=== PATIENT | female | born 1985 | race Caucasian/White ===

== ENCOUNTER 2018-03-04 10:09 | Emergency (ER) | payer MEDICAID, OTHER ==
[2018-03-04 10:34] VITALS: BP 120/68; PULSE 80; RESP 16; TEMP 98.9
[2018-03-04 10:44] VITALS: O2SAT 98
--- NOTE | 2018-03-04 11:43 | ED PDOC ---
HPI: Skin/Bite Injury Time Seen by Provider: 03/04/18 10:42 Chief Complaint (Nursing): Abnormal Skin Integrity Chief Complaint (Provider): Abnormal Skin Integrity History Per: Patient History/Exam Limitations: no limitations Onset/Duration Of Symptoms: Intermittent Episodes (6 months) Current Symptoms Are (Timing): Better Location Of Injury: Right: Arm (Bilateral Axilla), Left: Arm Additional Complaint(s): Patient is a 32 year old female with history of HTN presenting to the ED with complaints of bilateral axilla swelling and pain. She states that she is able to express pus from the region. Patient states that symptoms have been intermittent for the past 6 months and today was the only time she was able see a doctor. However, patient currently does not report any symptoms. She denies any fever, trauma, or a history of diabetes. PMD: None provided Past Medical History Reviewed: Historical Data, Nursing Documentation, Vital Signs Vital Signs: Last Vital Signs Temp 98.9 F 03/04/18 10:34 Pulse 80 03/04/18 10:34 Resp 16 03/04/18 10:34 BP 120/68 03/04/18 10:34 Pulse Ox 98 03/04/18 12:18 - Medical History PMH: HTN (during ) - Surgical History Surgical History: No Surg Hx - Family History Family History: States: Unknown Family Hx - Social History Current smoker - smoking cessation education provided: No Ex-Smoker (has not smoked in the last 12 months): Yes Alcohol: Social Drugs: Denies - Home Medications Home Medications: Ambulatory Orders Medication Instructions Recorded DiphenhydrAMINE [Benadryl] 1 - 2 tab PO Q6H #30 cap 02/09/15 Famotidine [Pepcid] 20 mg PO BID #14 tab 02/09/15 Prednisone 40 mg PO DAILY #10 tab 02/09/15 Sulfamethoxazole/Trimethoprim 2 tab PO BID #28 tab 03/04/18 [Bactrim DS 800 mg-160 mg] - Allergies Allergies/Adverse Reactions: Allergies Allergy/AdvReac Type Severity Reaction Status Date / Time No Known Allergies Allergy Verified 03/04/18 10:42 Review of Systems ROS Statement: Except As Marked, All Systems Reviewed And Found Negative Constitutional: Negative for: Fever Musculoskeletal: Positive for: Arm Pain (bilateral axilla swelling with pus). Negative for: Other (axilla trauma) Physical Exam - Reviewed Nursing Documentation Reviewed: Yes Vital Signs Reviewed: Yes - Physical Exam Appears: Positive for: No Acute Distress Head Exam: Positive for: ATRAUMATIC, NORMAL INSPECTION, NORMOCEPHALIC Skin: Positive for: Normal Color Eye Exam: Positive for: Normal appearance Neck: Positive for: Normal Cardiovascular/Chest: Positive for: Regular Rate, Rhythm Respiratory: Positive for: Normal Breath Sounds. Negative for: Respiratory Distress Gastrointestinal/Abdominal: Positive for: Normal Exam Extremity: Positive for: Normal ROM (with bilateral healed scarring of axilla). Negative for: Other (warmth, erythema, break in skin integrity or fluctuance of bilateral axilla) Lymphatic: Negative for: Adenopathy (bilateral axilla) Neurologic/Psych: Positive for: Alert, Oriented - ECG O2 Sat by Pulse Oximetry: 98 Medical Decision Making Medical Decision Making: Initial Impression: Bilateral Axilla Swelling Time: 1100 --Upon provider evaluation, patient is medically stable and requires no further treatment in the ED at this time. Patient will be discharged home with Rx for Bactrim DS and instructed to apply warm compress to affected area. Counseling was provided and all questions were answered regarding diagnosis and need for follow up with tubing machine tender. There is agreement to discharge plan. Return if symptoms persist or worsen. Clinical Impression: Hidradenitis Suppurativa Scribe Attestation: Documented by Clifton Cruz, acting as a scribe for Hermann Murcia PA-C. Provider Scribe Attestation: All medical record entries made by the Scribe were at my direction and personally dictated by me. I have reviewed the chart and agree that the record accurately reflects my personal performance of the history, physical exam, medical decision making, and the department course for this patient. I have also personally directed, reviewed, and agree with the discharge instructions and disposition. Disposition - Clinical Impression Clinical Impression: Hidradenitis suppurativa - Patient ED Disposition Is Patient to be Admitted: No Counseled Patient/Family Regarding: Diagnosis, Need For Followup, Rx Given - Disposition Referrals: [facility] [Outside] Disposition: Routine/Home Disposition Time: 11:00 Condition: STABLE Prescriptions: Sulfamethoxazole/Trimethoprim [Bactrim DS 800 mg-160 mg] 2 tab PO BID #28 tab Instructions: Hidradenitis Suppurativa Forms: [employer] (Slovak) Print Language: WOLOF
== END 2018-03-04 11:40 | disposition home or self-care (01) ==
LOC: H.ER 10:09
DX: L73.2 Hidradenitis suppurativa (principal); I10 Essential (primary) hypertension; Z87.891 Personal history of nicotine dependence

== ENCOUNTER 2018-03-23 16:34 | Emergency (ER) | payer MEDICAID, OTHER, SELFPAY ==
[2018-03-23] MEDS ORDERED: Albuterol 0.083% Inhal Sol (2.5 mg/3 mL) UD INH ONE (17:31)
[2018-03-23] MEDS ORDERED: DiphenhydrAMINE 50 mg/ml Inj IVP STA (17:31)
--- NOTE | 2018-03-23 17:56 | ED PDOC ---
HPI: SOB/CHF/COPD Time Seen by Provider: 03/23/18 16:40 Chief Complaint (Nursing): Shortness Of Breath Chief Complaint (Provider): Shortness Of Breath History Per: Patient History/Exam Limitations: no limitations Onset/Duration Of Symptoms: Hrs Current Symptoms Are (Timing): Still Present Additional Complaint(s): 32 year old female with a history allergic dermatitis since 2014 of presents to the ED with difficulty breathing onset today. Patient reports she began taking Bactrim for armpit inflammation on 03/05, but missed one dose. On her way to work today she began feeling tingling from head to toe, extreme abdominal pain, chest tightness, lip swelling, tongue swelling, and trouble breathing. She states she feels like got a "bad sunburn". At 10 am she took Benadryl but vomited it up. Patient reports vomiting all day, but denies any fever or any other medical complaints. PMD: none provided Past Medical History Reviewed: Historical Data, Nursing Documentation, Vital Signs Vital Signs: Last Vital Signs Temp 98.8 F 03/23/18 20:24 Pulse 90 03/23/18 20:24 Resp 16 03/23/18 20:24 BP 99/49 L 03/23/18 20:24 Pulse Ox 98 03/27/18 17:58 - Medical History PMH: HTN (during ) - Surgical History Surgical History: No Surg Hx - Family History Family History: States: Unknown Family Hx - Social History Current smoker - smoking cessation education provided: Yes (occasional) Ex-Smoker (has not smoked in the last 12 months): No Alcohol: None Drugs: Denies - Home Medications Home Medications: Ambulatory Orders Medication Instructions Recorded DiphenhydrAMINE [Benadryl] 1 - 2 tab PO Q6H #30 cap 02/09/15 Famotidine [Pepcid] 20 mg PO BID #14 tab 02/09/15 Prednisone 40 mg PO DAILY #10 tab 02/09/15 Sulfamethoxazole/Trimethoprim 2 tab PO BID #28 tab 03/04/18 [Bactrim DS 800 mg-160 mg] Nitrofurantoin Macrocrystals 100 mg PO BID 5 Days cap 03/23/18 [Macrobid] Prednisone [Deltasone] 40 mg PO DAILY 2 Days #4 tablet 03/23/18 - Allergies Allergies/Adverse Reactions: Allergies Allergy/AdvReac Type Severity Reaction Status Date / Time No Known Allergies Allergy Verified 03/23/18 16:46 Review of Systems ROS Statement: Except As Marked, All Systems Reviewed And Found Negative Constitutional: Negative for: Fever ENT: Positive for: Other (lip and tongue swelling) Cardiovascular: Positive for: Other (chest tightness) Respiratory: Positive for: Shortness of Breath Gastrointestinal: Positive for: Abdominal Pain Physical Exam - Reviewed Nursing Documentation Reviewed: Yes Vital Signs Reviewed: Yes - Physical Exam Appears: Positive for: Non-toxic, No Acute Distress Head Exam: Positive for: ATRAUMATIC, NORMOCEPHALIC Skin: Negative for: Normal Color (erythema throughout body, no discrete rash or raised areas) Eye Exam: Positive for: Normal appearance, EOMI, PERRL ENT: Positive for: Pharynx Is (clear), Other (mild swelling of lips but no tongue swelling) Neck: Positive for: Normal, Painless ROM Cardiovascular/Chest: Positive for: Regular Rate, Rhythm. Negative for: Murmur Respiratory: Positive for: Normal Breath Sounds. Negative for: Respiratory Distress Gastrointestinal/Abdominal: Positive for: Normal Exam, Soft. Negative for: Tenderness Back: Positive for: Normal Inspection Extremity: Positive for: Normal ROM (upper and lower) Neurologic/Psych: Positive for: Alert, community support associate II-XII, Oriented (x3). Negative for : Motor/Sensory Deficits, Aphasia, Facial Droop - Laboratory Results Result Diagrams: 03/23/18 17:45 03/23/18 17:45 - ECG O2 Sat by Pulse Oximetry: 98 (RA) Pulse Ox Interpretation: Normal Medical Decision Making Medical Decision Making: Time: 17:30 Initial Plan: rash, possible allergic reaction rule out electrolyte abnormality --CMP --CBC with differentials --Albuterol 2.5 INH --Benadryl 50 mg IVP --Pepcid 20 mg IVP --Solu-medrol 125 mg IVP --Peak flow pre/post Time: 18:36 --Discussed elevated white blood cell count with patient that may be due to abscess in the axillary area. Patient reports new flank pain, CT abd and pelvis without contrast will be ordered. Time: 19:00 --Patient endorsed to Dr. Monteiro by this provider, pending CT and urine. Scribe Attestation: Documented by Zunilda Handy, acting as a scribe for Yu Henry MD Provider Scribe Attestation: All medical record entries made by the Scribe were at my direction and personally dictated by me. I have reviewed the chart and agree that the record accurately reflects my personal performance of the history, physical exam, medical decision making, and the department course for this patient. I have also personally directed, reviewed, and agree with the discharge instructions and disposition. Disposition - Clinical Impression Clinical Impression: Adverse drug effect, UTI (urinary tract infection) - Patient ED Disposition Is Patient to be Admitted: No - Disposition Referrals: [facility] [Outside] Disposition: Transfer of Care Disposition Time: 19:00 Condition: STABLE Prescriptions: Nitrofurantoin Macrocrystals [Macrobid] 100 mg PO BID 5 Days cap Prednisone [Deltasone] 40 mg PO DAILY 2 Days #4 tablet Instructions: Urinary Tract Infection, Adult (DC), Adverse Drug Reactions, Adult Forms: [employer] (Malay) Patient Signed Over To: Marcelo Monteiro Handoff Comments: pending workup and final dispo
[2018-03-23 17:57] LABS: BASO # 0.1 K/uL (0.0-0.2); BASO % 0.6 % (0.0-2.0); EOS % 0.2 % (0.0-4.0); HEMOGLOBIN 13.4 g/dL (12.0-16.0); LYMPH # 0.4 K/uL (1.0-4.3); LYMPH % 1.8 % (20.0-40.0); MEAN CELL VOLUME 88.7 fl (81.0-99.0); MEAN CORPUSCULAR HEMOGLOBIN 29.8 pg (27.0-31.0); MEAN CORPUSCULAR HGB CONC 33.6 g/dL (33.0-37.0); MEAN PLATELET VOLUME 9.5 fl (7.2-11.7); MONO # 1.1 K/uL (0.0-0.8); NEUT # 20.4 K/uL (1.8-7.0); NEUT % 92.4 % (50.0-75.0); PLATELET COUNT 230 K/uL (130-400); RBC 4.48 Mil/uL (3.80-5.20); RED CELL DISTRIBUTION WIDTH 12.7 % (11.5-14.5)
[2018-03-23 18:45] LABS: ANISOCYTOSIS SLIGHT; BANDS 2 % (0-2); HYPOCHROMIC SLIGHT; LYMPHOCYTE 3 % (20-50); MONOCYTE 8 % (0-10); NEUTROPHIL 87 % (42-75); PLATELET ESTIMATE NORMAL (NORMAL); TOTAL CELLS COUNTED 100
[2018-03-23 18:46] LABS: LARGE PLATELETS PRESENT
[2018-03-23 19:11] LABS: ALB/GLOB RATIO 1.2 (1.0-2.1); ALBUMIN 4.1 g/dL (3.5-5.0); ALT/SGPT 17 U/L (9-52); AST/SGOT 26 U/L (14-36); BLOOD UREA NITROGEN 11 mg/dl (7-17); CALCIUM 9.2 mg/dL (8.4-10.2); GFR AFRICAN-AMERICAN > 60; GFR NON-AFRICAN AMERICAN > 60
[2018-03-23 19:47] LABS: SQUAMOUS EPITHIAL 8 /hpf (0-5); URINE BACTERIA RARE (<OCC); URINE BILIRUBIN NEGATIVE (NEGATIVE); URINE BLOOD MODERATE (NEGATIVE); URINE CLARITY CLOUDY (Clear); URINE COLOR YELLOW (YELLOW); URINE GLUCOSE (UA) NEG (Normal); URINE HYALINE CAST 0-2 /hpf (0-2); URINE LEUKOCYTE ESTERASE LARGE Leu/uL (Negative); URINE PROTEIN 30 mg/dL (NEGATIVE); URINE UROBILINOGEN 0.2-1.0 mg/dL (0.2-1.0)
--- NOTE | 2018-03-23 20:15 | ED PDOC ---
- Laboratory Results Result Diagrams: 03/23/18 17:45 03/23/18 17:45 - ECG O2 Sat by Pulse Oximetry: 99 (RA) Pulse Ox Interpretation: Normal Medical Decision Making Medical Decision Making: Time: 19:00 --Patient endorsed to this provider by Dr. Henry, pending CT. Time: 20:08 CT abd and pelvis: FINDINGS: Lung bases: Subpleural reticular opacities within the dependent aspect of the lower lobes may represent subsegmental atelectasis or scarring. ABDOMEN: Liver: The liver is normal in appearance. Gallbladder and bile ducts: The gallbladder is normal. No calcified stones. No ductal dilation. Pancreas: The pancreas is normal. No ductal dilation. Spleen: The spleen is normal. An accessory splenule is present. Adrenals: The adrenal glands are normal. Kidneys and ureters: The kidneys are normal. The ureters are normal. No obstructing stones. No hydronephrosis. Stomach and bowel: Normal. No obstruction. No mucosal thickening. PELVIS: Appendix: A normal appendix is identified. Bladder: The bladder is normal. No stones. Reproductive: The uterus is normal. Normal appearance of the adnexa. ABDOMEN and PELVIS: Intraperitoneal space: Trace free fluid within the pelvis, possibly physiologic. No free air. Bones/joints: Mild spondylosis of the imaged thoracic spine. No acute osseous abnormality. No dislocation. Soft tissues: Normal. Vasculature: Normal. No abdominal aortic aneurysm. Lymph nodes: 9 mm right mid abdominal aortocaval lymph node (axial image 97 and coronal image 48). IMPRESSION: 1. No acute abdominopelvic abnormality. 2. Prominent right mid abdominal lymph node, possibly reactive on the basis of enteritis or mesenteric adenitis. No lymphadenopathy by CT size criteria. Time: 21:04 --Patient re-evaluated, states she's feeling much better, notes that her abscesses are draining. Advised of results and told her she would need to be on ABx now for UTI. Patient applied for [facility] care and will followup in clinic. --Patient is medically cleared for discharge home. Diagnosis UTI and adverse drug effect. Patient advised to follow up with PMD in 1-2 days. Scribe Attestation: Documented by Zunilda Handy, acting as a scribe for Marcelo Monteiro MD Provider Scribe Attestation: All medical record entries made by the Scribe were at my direction and personally dictated by me. I have reviewed the chart and agree that the record accurately reflects my personal performance of the history, physical exam, medical decision making, and the department course for this patient. I have also personally directed, reviewed, and agree with the discharge instructions and disposition. Disposition - Clinical Impression Clinical Impression: Adverse drug effect, UTI (urinary tract infection) - POA Present On Arrival: None - Disposition Referrals: [facility] [Outside] Disposition: Routine/Home Disposition Time: 21:04 Condition: GOOD Prescriptions: Nitrofurantoin Macrocrystals [Macrobid] 100 mg PO BID 5 Days cap Prednisone [Deltasone] 40 mg PO DAILY 2 Days #4 tablet Instructions: Urinary Tract Infection, Adult (DC), Adverse Drug Reactions, Adult Forms: [employer] (Norwegian)
[2018-03-23 20:24] VITALS: BP 99/49; PULSE 90; RESP 16; TEMP 98.8
--- NOTE | 2018-03-24 10:34 | CT ---
Date of service: 03/23/2018 PROCEDURE: CT Abdomen and Pelvis without intravenous contrast HISTORY: abd pain COMPARISON: None. TECHNIQUE: Contiguous images were obtained from the domes of the diaphragms to the upper thighs without the administration of intravenous contrast. Oral contrast was not administered. Radiation dose: Total exam DLP = 929.9 mGy-cm. This CT exam was performed using one or more of the following dose reduction techniques: Automated exposure control, adjustment of the mA and/or kV according to patient size, and/or use of iterative reconstruction technique. FINDINGS: LOWER THORAX: Unremarkable. LIVER: Unremarkable. No gross lesion or ductal dilatation. GALLBLADDER AND BILE DUCTS: Unremarkable. PANCREAS: Unremarkable. No gross lesion or ductal dilatation. SPLEEN: Unremarkable. ADRENALS: Unremarkable. No mass. KIDNEYS AND URETERS: Unremarkable. No hydronephrosis. No solid mass. VASCULATURE: Unremarkable. No aortic aneurysm. BOWEL: Unremarkable. No obstruction. No gross mural thickening. APPENDIX: Unremarkable. Normal appendix. PERITONEUM: Unremarkable. No free fluid. No free air. LYMPH NODES: Unremarkable. No enlarged lymph nodes. BLADDER: Unremarkable. REPRODUCTIVE: Unremarkable. BONES: No acute fracture. OTHER FINDINGS: None. IMPRESSION: No obstructive uropathy or evidence of recently passed genitourinary calculus. No acute abdominal pelvic pathology.
[2018-03-27 17:47] VITALS: O2SAT 98
== END 2018-03-23 21:22 | disposition home or self-care (01) ==
LOC: H.ER 16:34
DX: T88.7XXA Unspecified adverse effect of drug or medicament, initial encounter (principal); N39.0 Urinary tract infection, site not specified
CPT/HCPCS: 74176; 80053; 81003; 81025; 85025; 87086; 94150; 94640; 96374; 96375; 99285; J1200; J2930